=== PATIENT | male | born 1980 | race Caucasian/White ===

== ENCOUNTER → 2016-09-01 | Outpatient (CLI) | payer OTHER ==
[~2016-09-01] MED LIST: ALL DAY ALLERGY10 M3 PO; BASAGLAR SQ; BENTYL10 MG PO; BUSPAR 10MG10 MG PO; DALVANCE500 MG IV; LANTUS100 UNIT/1 SQ; LOPRESSOR 25 MG25 MG PO; NEURONTIN 300300 MG PO; NOVOLOG100 UNIT/1 SQ; OMNICEF 300 MG300 MG PO; PROBENECID PO; PROTONIX40 MG PO; RANITIDINE HCL300 MG PO; VITAMIN C500 M1 PO
== END ==
LOC: US 14:30
DX: R80.9 Proteinuria, unspecified (principal); N32.89 Other specified disorders of bladder

== ENCOUNTER 2016-10-04 21:08 | Emergency (ER) | payer OTHER ==
[~2016-10-04 21:08] MED LIST changes: -BASAGLAR SQ; -OMNICEF 300 MG300 MG PO
[2017-01-10] MEDS ORDERED: BASAGLAR SQ ×2 (21:41→21:43)
[2017-01-13] MEDS ORDERED: OMNICEF 300 MG300 MG PO (12:07)
[2017-01-13] MEDS ORDERED: NEURONTIN 300300 MG PO (12:08)
== END 2016-10-05 01:00 | disposition left against medical advice (07) ==
LOC: ER1 21:08
DX: Z53.21 Procedure and treatment not carried out due to patient leaving prior to being seen by health care provider (principal)
CPT/HCPCS: J7030

== ENCOUNTER 2016-10-05 11:43 | Emergency (ER) | payer OTHER ==
[~2016-10-05] VITALS: Ht 188 cm; Wt 90.7 kg
[2016-10-05 14:55] LABS: HEMOGLOBIN 12.1 gm/dl (14.0-17.5); RED BLOOD COUNT 4.13 M/UL (4.20-5.50); WHITE BLOOD COUNT 8.9 K/UL (4.5-11.0)
[2016-10-05 15:35] LABS: BUN/CREATININE RATIO 8 (0-10)
[2017-01-10] MEDS ORDERED: BASAGLAR SQ ×2 (21:41→21:43)
[2017-01-13] MEDS ORDERED: OMNICEF 300 MG300 MG PO (12:07)
[2017-01-13] MEDS ORDERED: NEURONTIN 300300 MG PO (12:08)
== END 2016-10-05 18:30 | disposition home or self-care (01) ==
LOC: ER1 11:43
PROVIDERS: Specialist/Technologist Athletic Trainer
DX: L02.413 Cutaneous abscess of right upper limb (principal); L03.113 Cellulitis of right upper limb; F17.210 Nicotine dependence, cigarettes, uncomplicated
CPT/HCPCS: 10061; 36415; 73090; 80053; 82009; 82962; 85025; 86140; 96361; 96374; 99284; J0875; J7070

== ENCOUNTER → 2016-10-14 | Outpatient (CLI) | payer OTHER ==
[~2016-10-14] MED LIST changes: +BASAGLAR SQ; +OMNICEF 300 MG300 MG PO
[2016-10-14 14:56] LABS: BUN/CREATININE RATIO 11 (0-10)
== END ==
LOC: LAB 13:48
PROVIDERS: Internal Medicine Nephrology
DX: T14.90 Injury, unspecified (principal); R80.9 Proteinuria, unspecified
CPT/HCPCS: 36415; 73630; 80053

== ENCOUNTER → 2016-10-20 | Outpatient (CLI) | payer OTHER ==
[2016-10-20 17:45] LABS: URINE TOTAL PROTEIN 38 mg/dl
== END ==
LOC: LBRF 16:55 → OPSV 16:55
PROVIDERS: Internal Medicine Nephrology
DX: R80.9 Proteinuria, unspecified (principal)
CPT/HCPCS: 84156; G0463

== ENCOUNTER → 2016-10-21 | Outpatient (CLI) | payer OTHER | LOC: OPSV 16:02 | DX: L02.91 Cutaneous abscess, unspecified (principal) | CPT/HCPCS: G0463 ==

== ENCOUNTER → 2016-10-22 | Outpatient (CLI) | payer OTHER | LOC: OPSV 13:00 | DX: L02.91 Cutaneous abscess, unspecified (principal) | CPT/HCPCS: G0463 ==

== ENCOUNTER → 2016-10-23 | Outpatient (CLI) | payer OTHER | LOC: OPSV 16:00 | DX: Z48.00 Encounter for change or removal of nonsurgical wound dressing (principal); L02.91 Cutaneous abscess, unspecified | CPT/HCPCS: G0463 ==

== ENCOUNTER → 2016-10-24 | Outpatient (CLI) | payer OTHER | LOC: OPSV 08:00 → EROP 10:27 | DX: L02.91 Cutaneous abscess, unspecified (principal) ==

== ENCOUNTER → 2016-10-26 | Outpatient (CLI) | payer OTHER | LOC: OPSV 16:00 | DX: L02.91 Cutaneous abscess, unspecified (principal) | CPT/HCPCS: G0463 ==

== ENCOUNTER → 2016-10-27 | Outpatient (CLI) | payer OTHER | LOC: OPSV 13:00 | DX: L02.91 Cutaneous abscess, unspecified (principal) | CPT/HCPCS: G0463 ==

== ENCOUNTER → 2016-12-02 | Outpatient (CLI) | payer OTHER | LOC: RAD 14:00 | DX: R06.02 Shortness of breath (principal); R05 Cough | CPT/HCPCS: 71020 ==

== ENCOUNTER 2017-03-03 08:49 | Emergency (ER) | payer OTHER | END 2017-03-03 11:40 | disposition home or self-care (01) | LOC: ER1 08:49 | DX: S51.012A Laceration without foreign body of left elbow, initial encounter (principal); I10 Essential (primary) hypertension; E11.9 Type 2 diabetes mellitus without complications; F17.210 Nicotine dependence, cigarettes, uncomplicated; Z79.899 Other long term (current) drug therapy; W26.8XXA Contact with other sharp object(s), not elsewhere classified, initial encounter; Y92.009 Unspecified place in unspecified non-institutional (private) residence as the place of occurrence of the external cause | CPT/HCPCS: 12004; 73080; 99283 ==

== ENCOUNTER → 2017-03-03 | Outpatient (CLI) | payer OTHER ==
[2017-03-03 13:00] LABS: HEMOGLOBIN 10.5 gm/dl (14.0-17.5); RED BLOOD COUNT 3.53 M/UL (4.20-5.50); WHITE BLOOD COUNT 9.4 K/UL (4.5-11.0)
[2017-03-03 13:21] LABS: BUN/CREATININE RATIO 8 (0-10)
== END ==
LOC: LAB 11:58
PROVIDERS: Nurse Practitioner Family
DX: J18.9 Pneumonia, unspecified organism (principal)
CPT/HCPCS: 36415; 80048; 85025